=== PATIENT | female | born 1955 | race Hispanic/Latino ===

== ENCOUNTER 2017-09-28 01:36 | Emergency (ER) | payer BC ==
[2017-09-28 01:42] VITALS: BP 102/74; PULSE 73; RESP 16; TEMP 98.6; O2SAT 100
--- NOTE | 2017-09-28 01:56 | ED PDOC ---
Lower Extremity Pain/Injury Time Seen by Provider: 09/28/17 01:48 Chief Complaint (Nursing): Lower Extremity Problem/Injury Chief Complaint (Provider): Ankle pain History Per: Patient Additional Complaint(s): 62 yo female, no PMH, presents to ED with complaints of left foot pain, swelling and bruising. Pt reports she was dancing in socks tonight when she slipped and "twisted her foot." No medicine taken [employer]. Pt driove to ED, ambulating with limp Past Medical History Reviewed: Nursing Documentation, Vital Signs Vital Signs: Last Vital Signs Temp 98.6 F 09/28/17 01:40 Pulse 73 09/28/17 01:40 Resp 16 09/28/17 01:40 BP 102/74 09/28/17 01:40 Pulse Ox 100 09/28/17 01:40 - Medical History PMH: No Chronic Diseases - Family History Family History: States: Unknown Family Hx - Living Arrangements Living Arrangements: With Family - Social History Current smoker - smoking cessation education provided: No Alcohol: None Drugs: Denies - Home Medications Home Medications: Ambulatory Orders Medication Instructions Recorded Ibuprofen [Motrin] 600 mg PO Q6 #20 tab 09/28/17 oxyCODONE/Acetaminophen [Percocet 1 ea PO Q6 PRN #10 tab 09/28/17 5/325 mg Tab] - Allergies Allergies/Adverse Reactions: Allergies Allergy/AdvReac Type Severity Reaction Status Date / Time No Known Allergies Allergy Verified 09/28/17 01:40 Review of Systems ROS Statement: Except As Marked, All Systems Reviewed And Found Negative Musculoskeletal: Positive for: Foot Pain Physical Exam - Reviewed Nursing Documentation Reviewed: Yes Vital Signs Reviewed: Yes - Physical Exam Appears: Positive for: Well, Non-toxic, No Acute Distress Head Exam: Positive for: ATRAUMATIC, NORMAL INSPECTION, NORMOCEPHALIC Skin: Positive for: Normal Color, Warm, DRY Eye Exam: Positive for: EOMI, Normal appearance, PERRL ENT: Positive for: Normal ENT Inspection Neck: Positive for: Normal, Painless ROM Cardiovascular/Chest: Positive for: Regular Rate, Rhythm Respiratory: Positive for: CNT, Normal Breath Sounds Gastrointestinal/Abdominal: Positive for: Normal Exam, Bowel Sounds, Soft Back: Positive for: Normal Inspection Extremity: Positive for: Tenderness, Swelling (and ecchymmosis left dorsal aspect of foot over 3-5th metatarsals) Neurologic/Psych: Positive for: Alert, Oriented - ECG O2 Sat by Pulse Oximetry: 100 Medical Decision Making Medical Decision Making: Pt administered Motrin PO as requested by Pt XR: (+) FXR to 3-5th metatarsals Podiatry consult obtained, see notes Disposition - Clinical Impression Clinical Impression: Foot fracture - Patient ED Disposition Is Patient to be Admitted: No - Disposition Referrals: Neel Marquez DPM [Staff Provider] - Disposition: Routine/Home Disposition Time: 03:54 Condition: STABLE Prescriptions: Ibuprofen [Motrin] 600 mg PO Q6 #20 tab oxyCODONE/Acetaminophen [Percocet 5/325 mg Tab] 1 ea PO Q6 PRN #10 tab PRN Reason: Pain, Severe (8-10) Instructions: Foot Fracture in Adults (ED) Forms: [facility] (Korean)
--- NOTE | 2017-09-28 03:01 | CP.PCM.CON ---
History of Present Illness - History of Present Illness History of Present Illness: 62 year old female with PMHx of osteoporosis seen in ED for pain in her left foot. Patient states that she was dancing in socks earlier this evening when she slipped and fell, twsiting her left foot in the process. Patient states that she felt immediate pain to the outside of her foot and was unable to bear weight following the fall. She denies LOC or head trauma. Patient states that since the time of injury her foot has become increasingly swollen and bruised. She states that she was given a Motrin for pain upon arrival to ED. Patient denies any further pedal complaints at this time. She denies parathesia or paralysis to LLE. She denies N/V/F/C/CP/SOB/posterior calf pain. Meds: Vitamin supplements All: NKDA PSH: Hysterectomy FH: Unremarkable SH: Denies tobacco use, social ETOH, denies illicit drug use Review of Systems - Review of Systems Review of Systems: ROS as per HPI. All other systems reviewed and found to be negative Past Patient History - Past Social History Alcohol: None Drugs: Denies Meds Home Medications: Home Medication List Medication Instructions Recorded Confirmed Type Ibuprofen [Motrin] 600 mg PO Q6 #20 tab 09/28/17 Rx oxyCODONE/Acetaminophen [Percocet 1 ea PO Q6 PRN #10 tab 09/28/17 Rx 5/325 mg Tab] Allergies/Adverse Reactions: Allergies Allergy/AdvReac Type Severity Reaction Status Date / Time No Known Allergies Allergy Verified 09/28/17 01:40 Physical Exam - Constitutional Appears: Well, Non-toxic, No Acute Distress - Extremities Exam Additional comments: LE focused exam: Vasc: DP/PT pulses palpable 2/4 b/l. Skin temperature warm to warm from proximal to distal. CFT < 3 seconds to all digits b/l. Moderate edema noted to lateral aspect of left foot at level of midfoot Neuro: Epicritic and protective sensation grossly intact b/l Derm: Diffuse ecchymosis noted to lateral left midfoot. No ope lesions, wounds, maceration, xerosis, abnormal growths noted MSK: POP noted to level of left third metatarsal head, left fourth metatarsal head and entirety of left fifth metatarsal. No gross misalignment of digits appreciated at this time. Patient able to wiggle all digits to left foot with some discomfort and pain - Neurological Exam Neurological exam: Alert, Oriented x3 - Psychiatric Exam Psychiatric exam: Normal Affect, Normal Mood Results - Vital Signs Recent Vital Signs: Last Vital Signs Temp 98.6 F 09/28/17 01:40 Pulse 73 09/28/17 01:40 Resp 16 09/28/17 01:40 BP 102/74 09/28/17 01:40 Pulse Ox 100 09/28/17 02:26 Assessment & Plan - Assessment and Plan (Free Text) Assessment: 62 year old female seen in ED for multiple displaced, comminuted fractures to left fifth metatarsal, nondisplaced fractures to left fourth metatarsal neck and left third metatarsal neck Plan: Patient seen and evaluated at bedside Xray reviewed: Multiple fracture lines noted to fifth metatarsal shaft and base with dorsal dislocation appreciated. Fracture to third and fourth metatarsal necks seen. No gross dislocation or fracture appreciated at [place] joint. Soft tissue swelling noted to lateral foot Patient placed in posterior splint Patient advised to rest, ice, and elevate foot Patient advised to remain NWB to left side Rx percocet prn for pain Patient advised that if she begins experiencing increased parasthesia, pallor, paralysis to left foot or digits she should return to ED Patient to f/u with Dr. Marquez for scheduling of surgery for ORIF of fifth metatarsal with possible ORIF of left third and fourth metatarsals
--- NOTE | 2017-09-28 11:07 | RAD ---
PROCEDURE: Left Foot Radiographs. HISTORY: pain, swelling s/p twist injury COMPARISON: None available. FINDINGS: BONES: Comminuted displaced fracture of the 5th metatarsal. Oblique fracture deformity of the 3rd distal metatarsal. JOINTS: No dislocation. SOFT TISSUES: Soft tissue swelling. No evidence of radiopaque foreign body. OTHER FINDINGS: None. IMPRESSION: Comminuted displaced fracture of the 5th metatarsal. Oblique fracture deformity of the 3rd distal metatarsal. Soft tissue swelling Study marked for PA review.
== END 2017-09-28 04:40 | disposition home or self-care (01) ==
LOC: H.ER 01:36
DX: S92.302A Fracture of unspecified metatarsal bone(s), left foot, initial encounter for closed fracture (principal); W01.0XXA Fall on same level from slipping, tripping and stumbling without subsequent striking against object, initial encounter; Y93.41 Activity, dancing; M81.0 Age-related osteoporosis without current pathological fracture

== ENCOUNTER 2017-10-21 12:05 | Day surgery (SDC) | payer BC ==
[2017-10-20 15:20] VITALS: BMI 25.1
[2017-10-21 12:48] VITALS: RESP 18
[2017-10-21] MEDS ORDERED: Lidocaine 1% Inj (20ml) ONE (12:49)
[2017-10-21] MEDS ORDERED: Bupivacaine 0.5% Inj(30mL) ONE (12:49)
--- NOTE | 2017-10-21 12:54 | CP.SDSHP ---
Same Day Surgery H & P - History Proposed Procedure: left 5th metatarsal ORIF Pre-Op Diagnosis: left 5th metatarsal fracture - Allergies Allergies: Allergies diphenhydramine [From Benadryl] Adverse Reaction (Verified 10/20/17 15:22) FATIGUE depressed does not like the feeling - Physical Exam Vital Signs: Vital Signs 10/21/17 10/21/17 12:41 12:46 Temperature 97.7 F Pulse Rate 64 64 Respiratory 18 Rate Blood Pressure 110/71 O2 Sat by Pulse 99 Oximetry Mental Status: Alert & Oriented x3 - {Optional Preform as Required} Integument: WNL - Impression Impression: Pt was seen and examined in SDS. Pt NPO status was confirmed. All pre-op testing and clearance in chart. Pt has exhausted all conservative treatment at this time and is opting for surgical intervention. Pt was explained procedure and post-operative course. All pt's questions were answered to satisfaction. No guarantees were made. Pt understands all risks, benefits and complications of procedure. Pt will follow-up with Dr. Marquez within 1 week of surgery Short Stay Discharge - Short Stay Discharge Admitting Diagnosis/Reason for Visit: S92.352D Disposition: HOME/ ROUTINE Medications: Cephalexin [Keflex] 500 mg PO TID 7 Days cap oxyCODONE/Acetaminophen [Percocet 5/325 mg Tab] 1 tab PO .Q4-6 PRN #20 tab PRN Reason: Pain, Severe (8-10) Referrals: FAMILY PROVIDER,NO [Primary Care Provider] - Instructions: RICE Therapy (GEN), Cephalexin (By mouth), Oxycodone/ Acetaminophen (By mouth) Additional Instructions (Diet, Activity): -Patient in good/stable condition for discharge home -Pt to resume medications per medical reconciliation -Resume regular diet Please keep dressing clean, dry, & intact to surgical site -Use plastic bag over bandage for showering -Wear post op shoe at all times when ambulating -Call clinic if you see signs of infection (redness, swelling, malodor) -Please make an appointment to see Dr. Marquez in office/clinic within 1 week for post-op check Progress Note/Discharge Note with Instructions: - Patient evaluated bedside in recovery s/p surgical procedure. - After surgical procedure patient in NAD - (+) Void, (+) Appetite - Capillary refill time <3s and NVSI intact. - Patient denies complaints at this time - Post operative instructions and plan of care explained to patient at length. - Pt. acknowledges understanding. - Patient stable for DC per podiatric surgery
--- NOTE | 2017-10-21 12:54 | CP.PCM.PN ---
Subjective - Date & Time of Evaluation Date of Evaluation: 10/21/17 Time of Evaluation: 13:29 - Subjective Subjective: Felisa-operative Evaluation- Dr. Marquez 62 y.o f seen in [facility] for left 5th metatarsal ORIF with Dr. Marquez. Patient reports that on while she was dancing, she slipped and fell. Reports that she continued to dance the entire night. Came to ED after the pain persist and unable to bear weight at home. X-rays taken and was told she had a fracture of left foot. Today patient reports 1/10 pain. Currently is not taking any pain medications. Describes the pain being localized to the left foot. Denies numbness and tingling. Patient reports that the last time she ate or drank was 11:30PM. She denies n/v/sob/cp/chills or cp. PMH: none PSH: hysterectomy SH: denies, socially drinks, denies illicit drug use ALL: Benadryl MEDS: none FH: noncontributory Objective - Vital Signs/Intake and Output Vital Signs (last 24 hours): Temp Pulse Resp BP Pulse Ox 97.7 F 64 18 110/71 99 10/21/17 12:46 10/21/17 12:46 10/21/17 12:46 10/21/17 12:46 10/21/17 12:46 - Constitutional Appears: Well, Non-toxic, No Acute Distress - Extremities Exam Extremities Exam: absent: Calf Tenderness Additional comments: LE focused exam: Vasc: DP/PT pulses palpable 2/4 b/l. Skin temperature warm to warm from proximal to distal. CFT < 3 seconds to all digits b/l. Moderate edema noted to lateral aspect of left foot at level of midfoot Neuro: Epicritic and protective sensation grossly intact b/l Derm: Diffuse ecchymosis noted entire left midfoot. No open lesions, wounds, maceration, xerosis, abnormal growths noted b/l, MSK: POP noted to level of left third metatarsal head, left fourth metatarsal head and entirety of left fifth metatarsal. No gross misalignment of digits appreciated at this time. Patient able to wiggle all digits to left foot. - Neurological Exam Neurological Exam: Alert, Awake, Oriented x3 - Psychiatric Exam Psychiatric exam: Normal Affect, Normal Mood Assessment and Plan - Assessment and Plan (Free Text) Assessment: 62 y.o f seen in [facility] for left 5th metatarsal ORIF with Dr. Marquez. Plan: Pt was seen and examined in [facility] Pt NPO status was confirmed All pre-op testing and clearance in chart Pt has exhausted all conservative treatment at this time and is opting for surgical intervention Pt was explained procedure and post-operative course All pt's questions were answered to satisfaction No guarantees were made Pt understands all risks, benefits and complications of procedure Pt will follow-up with Dr. Marquez within 1 week of surgery
[2017-10-21] MEDS ORDERED: Lidocaine 1% Inj (20ml) IJ ONE ×2 (12:56→14:25)
[2017-10-21] MEDS ORDERED: Bupivacaine HCl 0.25% PF (30 ml) Inj IJ ONE (12:56)
[2017-10-21] MEDS ORDERED: ceFAZolin IV 2 gm in Dextrose 2 GM/50 ML BAG IVPB ONE (13:15)
[2017-10-21] MEDS ORDERED: Midazolam 2 MG/2 ML VIAL ONE (13:30)
[2017-10-21] MEDS ORDERED: Propofol 10 mg/ml Inj (20 ML) ONE (13:30)
[2017-10-21] MEDS ORDERED: Lidocaine 1% 5ml Abboject IV ONE (13:31)
[2017-10-21] MEDS ORDERED: Lactated Ringer's 1,000 ML IV ONE (14:18)
[2017-10-21] MEDS ORDERED: Bupivacaine 0.5% 50 ML IJ ONE ×2 (14:25)
[2017-10-21] MEDS ORDERED: Sevoflurane - Inhalation Anesthetic Liq (250 ml) ONE (16:55)
[2017-10-21] MEDS ORDERED: Hydrogen Peroxide 3% Soln (480ml) TP ONE (17:40)
[2017-10-21] MEDS ORDERED: HYDROmorphone 0.5 mg/0.5 ml ISec IVP PRN (18:09)
[2017-10-21] MEDS ORDERED: Oxycodone/Acetaminophen 5/325 mg Tab PO PRN ×2 (18:10)
[2017-10-21] MEDS ORDERED: Lactated Ringer's 1,000 ML IV SCH (18:15)
--- NOTE | 2017-10-21 18:16 | PCM.SURG1 ---
Surgeon's Initial Post Op Note - Surgeon's Notes Surgeon: Dr. Marquez Clothing Manager: Dr. Perry, Dr. Pedro Type of Anesthesia: General LMA Anesthesia Administered By: Dr. Larry Pre-Operative Diagnosis: left 5th metatarsal fracture Operative Findings: see dictation; materials: 2-0, 4-0 vicryl, 4-0 nylon; injectables: 20cc of 1:1 .5% marcaine pain and 1% lidocaine plain; DBX putty 1cc Post-Operative Diagnosis: same Operation Performed: left 5th metatarsal fracture ORIF Specimen/Specimens Removed: none Estimated Blood Loss: EBL {In ML}: 10 Blood Products Given: N/A Drains Used: No Drains Post-Op Condition: Good Date of Surgery/Procedure: 10/21/17 Time of Surgery/Procedure: 02:30
[2017-10-21 19:18] VITALS: O2SAT 100
[2017-10-21 19:53] VITALS: BP 107/58; PULSE 72; TEMP 97.2
--- NOTE | 2017-10-22 09:53 | RAD ---
PROCEDURE: Left Foot Radiographs. HISTORY: s/p left foot surgery COMPARISON: Of the with the atelectatic has had all his 09/28/2017 FINDINGS: BONES: Status post ORIF comminuted 5th metatarsal fracture. Fracture fragments are in near anatomic alignment. No new fracture identified. Bony detail is obscured by overlying fiberglass splint. JOINTS: Normal. SOFT TISSUES: Normal. OTHER FINDINGS: None. IMPRESSION: ORIF 5th metatarsal fracture in near anatomic alignment.
--- NOTE | 2017-10-23 00:04 | OP ---
PROCEDURE DATE: 10/21/2017 SURGEON: Neel Marquez DPM ASSISTANTS: Vilma Perry DPM, PGY2 and Rosana Pedro DPM, PGY2 ANESTHESIA ADMINISTERED BY: Tirso Larry MD. TYPE OF ANESTHESIA: General LMA. PREOPERATIVE DIAGNOSIS: Left fifth metatarsal comminuted fracture. POSTOPERATIVE DIAGNOSIS: Left fifth metatarsal comminuted fracture. PROCEDURE: Left foot fifth metatarsal open reduction and internal fixation with the use of internal fixation. INDICATIONS: The patient is a 62-year-old female with the above-mentioned diagnoses. The patient has exhausted multiple forms of conservative treatment at this time and now requires surgical intervention. The patient signed the consent after careful explanation of risks, benefits, complications, and alternatives for surgical procedure. No guarantees were given nor implied. PREPARATION: The patient was brought into the operating room and placed on the operating room table in a supine position. A time-out was performed for identification of the correct patient and procedure. The patient received a total of 18 mL of a 1:1 mixture of 1% lidocaine plain and 0.5% Marcaine plain in a local block type fashion to the left foot. Once general and local anesthesia was achieved, the left foot was then prepped and draped in normal sterile manner. The patient's left foot was elevated and the pneumatic ankle tourniquet was then inflated to 250 mmHg and the procedure began. DESCRIPTION OF PROCEDURE: At this time, attention was directed to the dorsolateral aspect of the left fifth metatarsal, where a comminuted fracture was present. At this time, via the use of a #15 blade, an approximately 4 cm in length linear incision was created over the dorsolateral aspect of the fifth metatarsal of the left foot. The incision was carried from proximal to distal to the level of the metatarsal head. Upon completion of the incision, all neurovascular structures encountered were retracted, ligated and Bovied as necessary. Then the incision was created from the dermal layer to the periosteum without soft tissue dissection. At this time, via the use of a roberto elevator, the periosteum was dissected free from its osseus attachments and it was noted that the fifth metatarsal shaft was severely comminuted in 5 to 6 bony fragments. Upon dissection of the surrounding soft tissues from the fracture site, the fracture fragment was distracted distally and a bone curette was utilized to clean and remove hemorrhagic tissue and coagulate blood from the fracture site. The surgical site was then copiously irrigated with normal sterile saline. At this time, via the use of a bone clamp, and distal and proximal distraction, the fracture was placed in an anatomical corrected position with noted increased length. Upon reduction of the metatarsal, the fracture was clamped with a bone clamp. At this time, a lag screw was placed across the proximal fracture site in order to allow for interfragmentary screw fixation. However, due to the poor bone quality and osteoporotic nature of the bone, the threads of the screw were unable to catch the cortical bone and the screw had to be removed. Next, the locking bridging plate was applied across the fracture site and screws were placed proximally and distally. Due to the osteoporotic bone quality, the screws that were inserted through the plate and across the fracture site did not purchase the bone. Upon maneuvering the plate into proper alignment, one of the bony fragments fell on the floor at this time, and according to proper protocol, the bone was then copiously irrigated with 3 minutes of bacitracin solution and saline and another additional 3 minutes of bacitracin and saline soak, followed by Betadine irrigation and saline flush. The bone was then placed back into its proper alignment in the fifth metatarsal shaft. The tourniquet was then dropped at the 2-hour nahed and was re-inflated after 15 minutes of reperfusion. There was then an intraoperative decision to remove the plate due to the poor bone quality with the use of all these screws, and due to the extensive comminution, the plate and the screws were then removed. Next, with the use of a #22 cerclage wire, the bony fragments were stabilized and placed in proper alignment, both proximally and distally on the metatarsal shaft. The surgical site was then copiously irrigated with sterile normal saline. Next, demineralized bone matrix with 2 mL was injected and smoothed down to fill in the bony void along the metatarsal shaft. The capsular and periosteal tissues were then reapproximated with 2-0 Vicryl, the subcutaneous tissue was reapproximated with 4-0 Vicryl, and the skin was reapproximated with 4-0 nylon. Postoperative injection of 20 mL of 0.5% Marcaine plain was given in a local block type fashion to left foot. The postoperative bandage including Xeroform, dry sterile dressing, and a posterior splint with Webril and Alexis. POSTOPERATIVE CONDITION: The patient tolerated the anesthesia and the procedure well and was escorted to the recovery room with vital signs stable and neurovascular status intact to the left foot. The patient is to remain nonweightbearing to the left lower extremity and will follow up with Dr. Marquez in his office on an outpatient basis. Vilma Perry DPM Neel Marquez DPM MTDD
--- NOTE | 2017-10-23 18:37 | CARD ---
APPROVED REPORT EKG Measurement Heart [id number] <Conclusion> Sinus bradycardia Nonspecific ST abnormality Abnormal ECG
== END 2017-10-21 20:15 | disposition home or self-care (01) ==
LOC: H.OPSURG 12:05
PROVIDERS: ATTEND Podiatrist Foot & Ankle Surgery
DX: S92.352D Displaced fracture of fifth metatarsal bone, left foot, subsequent encounter for fracture with routine healing (principal); X58.XXXD Exposure to other specified factors, subsequent encounter; W01.0XXA Fall on same level from slipping, tripping and stumbling without subsequent striking against object, initial encounter; Y93.41 Activity, dancing; Z90.710 Acquired absence of both cervix and uterus
CPT/HCPCS: 28485; 73630; 93005; 97161; C1713; C1769; G8978; G8979; G8980; J0690; J1885; J2250; J2704; J2765; J3010; J7030; J7120